=== PATIENT | female | born 1940 | race Two or more races ===

== ENCOUNTER 2023-12-05 09:18 | Emergency (ER) | payer MEDICARE, SELFPAY ==
--- NOTE | ~2023-12-05 | XR_ITS ---
EXAMINATION: RIGHT SHOULDER, BILATERAL KNEES AND RIGHT THUMB CLINICAL INFORMATION: Thumb pain and swelling. Shoulder pain and bilateral knee pain after fall weeks ago COMPARISON: None available. TECHNIQUE: 3 views right shoulder, 2 views each knee, 3 views right thumb FINDINGS: Shoulder: Degenerative changes are present at the AC joint. The glenohumeral joint is unremarkable. There is calcification present in the supraspinatus tendon. No acute fracture or dislocation is seen. Right knee: Moderate degenerative changes are seen with most marked changes in the patellofemoral joint and medial compartment with milder degenerative changes seen in the lateral compartment. No knee joint effusion is seen. No fractures or dislocations. Left knee: Moderate degenerative changes are seen with most marked changes in the patellofemoral joint and medial compartment with milder degenerative changes seen in the lateral compartment. No knee joint effusion is seen. No fractures or dislocations. Left thumb: No fractures or dislocations. Some mild degenerative changes are seen at the interphalangeal joint and MCP joint. There is some periarticular calcification present at the base of the first metacarpal laterally. XR/XR shoulder RT min 2V IMPRESSION: 1. No evidence of an acute osseous injury. 2. 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 3. 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 4. Degenerative changes in the right thumb.
--- NOTE | ~2023-12-05 | XR_ITS ---
EXAMINATION: RIGHT SHOULDER, BILATERAL KNEES AND RIGHT THUMB CLINICAL INFORMATION: Thumb pain and swelling. Shoulder pain and bilateral knee pain after fall weeks ago COMPARISON: None available. TECHNIQUE: 3 views right shoulder, 2 views each knee, 3 views right thumb FINDINGS: Shoulder: Degenerative changes are present at the AC joint. The glenohumeral joint is unremarkable. There is calcification present in the supraspinatus tendon. No acute fracture or dislocation is seen. Right knee: Moderate degenerative changes are seen with most marked changes in the patellofemoral joint and medial compartment with milder degenerative changes seen in the lateral compartment. No knee joint effusion is seen. No fractures or dislocations. Left knee: Moderate degenerative changes are seen with most marked changes in the patellofemoral joint and medial compartment with milder degenerative changes seen in the lateral compartment. No knee joint effusion is seen. No fractures or dislocations. Left thumb: No fractures or dislocations. Some mild degenerative changes are seen at the interphalangeal joint and MCP joint. There is some periarticular calcification present at the base of the first metacarpal laterally. XR/XR knee RT 2V IMPRESSION: 1. No evidence of an acute osseous injury. 2. 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 3. 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 4. Degenerative changes in the right thumb.
--- NOTE | ~2023-12-05 | XR_ITS ---
EXAMINATION: RIGHT SHOULDER, BILATERAL KNEES AND RIGHT THUMB CLINICAL INFORMATION: Thumb pain and swelling. Shoulder pain and bilateral knee pain after fall weeks ago COMPARISON: None available. TECHNIQUE: 3 views right shoulder, 2 views each knee, 3 views right thumb FINDINGS: Shoulder: Degenerative changes are present at the AC joint. The glenohumeral joint is unremarkable. There is calcification present in the supraspinatus tendon. No acute fracture or dislocation is seen. Right knee: Moderate degenerative changes are seen with most marked changes in the patellofemoral joint and medial compartment with milder degenerative changes seen in the lateral compartment. No knee joint effusion is seen. No fractures or dislocations. Left knee: Moderate degenerative changes are seen with most marked changes in the patellofemoral joint and medial compartment with milder degenerative changes seen in the lateral compartment. No knee joint effusion is seen. No fractures or dislocations. Left thumb: No fractures or dislocations. Some mild degenerative changes are seen at the interphalangeal joint and MCP joint. There is some periarticular calcification present at the base of the first metacarpal laterally. XR/XR finger RT min 2V IMPRESSION: 1. No evidence of an acute osseous injury. 2. 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 3. 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 4. Degenerative changes in the right thumb.
--- NOTE | ~2023-12-05 | XR_ITS ---
EXAMINATION: RIGHT SHOULDER, BILATERAL KNEES AND RIGHT THUMB CLINICAL INFORMATION: Thumb pain and swelling. Shoulder pain and bilateral knee pain after fall weeks ago COMPARISON: None available. TECHNIQUE: 3 views right shoulder, 2 views each knee, 3 views right thumb FINDINGS: Shoulder: Degenerative changes are present at the AC joint. The glenohumeral joint is unremarkable. There is calcification present in the supraspinatus tendon. No acute fracture or dislocation is seen. Right knee: Moderate degenerative changes are seen with most marked changes in the patellofemoral joint and medial compartment with milder degenerative changes seen in the lateral compartment. No knee joint effusion is seen. No fractures or dislocations. Left knee: Moderate degenerative changes are seen with most marked changes in the patellofemoral joint and medial compartment with milder degenerative changes seen in the lateral compartment. No knee joint effusion is seen. No fractures or dislocations. Left thumb: No fractures or dislocations. Some mild degenerative changes are seen at the interphalangeal joint and MCP joint. There is some periarticular calcification present at the base of the first metacarpal laterally. XR/XR knee LT 2V IMPRESSION: 1. No evidence of an acute osseous injury. 2. 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 3. 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 4. Degenerative changes in the right thumb.
[2023-12-05 09:25] VITALS: BP 149/63; PULSE 70; RESP 17; TEMP 36.6; O2SAT 98; BMI 35.7
--- NOTE | 2023-12-05 11:37 | PC.NURSE ---
Pt comes from home for a fall where she tripped and fell forward. No LOC, - head strike, - blood thinners. States pain in both knees and right shoulder. Pt also states pain to her right wrist that is unrelated to the fall. Daughter at bedside, djiboutian speaking only. Awaiting X-ray results at this time.
--- NOTE | 2023-12-05 12:01 | ED.GENADULT ---
HPI - General Adult General Chief complaint: General Medical Stated complaint: r hand r foot swelling in pain Time Seen by Provider: 12/05/23 11:33 Source: patient and family Mode of arrival: wheelchair Limitations: no limitations History of Present Illness ED Provider: mitzy [facility] narrative: Patient is an 83-year-old female presenting to the emergency department with family complaining primarily of right thumb pain, as well as bilateral knee pain and right shoulder pain. States that she tripped and fell a few days ago. She typically uses a walker but was not using her walker at the time. Denies head strike or loss of consciousness. She is not anticoagulated. MD complaint: right hand pain Onset (ago): day(s) Severity: moderate Quality: aching Pain Consistency: constant Associated symptoms: denies other symptoms Treatments prior to arrival: none Related Data Previous Rx's ?Medication ?Instructions ?Recorded diclofenac sodium 1 % topical gel 2 g topical QID #100 grams 12/05/23 Allergies Allergy/AdvReac Type Severity Reaction Status Date / Time No Known Allergies Allergy Verified 12/05/23 09:28 Review of Systems Review of Systems: As per HPI. Yes all other systems are reviewed and are negative Constitutional: Constitutional: Reports as per HPI PMF Social History Social History Smoked in Last 30 Days: No Use of substances other than those prescribed or required for medical reasons: No Advance Directives: No Advance Directives Information Provided: Yes Physical Exam ED Vital Signs: Vital Signs - 24 hr 12/05/23 09:25 Temperature 98 F Pulse Rate 70 Respiratory Rate 17 Blood Pressure 149/63 H Pulse Oximetry 98 Oxygen Delivery Method Room Air BMI result Body Mass Index 35.7 Vital signs have been reviewed and appear to be correct. Blood pressure elevated. Heart rate normal. Respiratory rate normal. Temperature normal. Oxygen saturation normal. Const General: cooperative, healthy appearing and no acute distress Orientation/consciousness: oriented to person, oriented to place, oriented to time and patient oriented x3 Limitations: no limitations HENMT Head: Yes normocephalic and Yes atraumatic Ears: external ears normal General nose exam: Normal external nose present Face and sinus: Yes face symmetric Mouth: oropharynx normal and moist mucous membranes Throat: Yes uvula midline Eyes Pupils: Equal, round and reactive pupils present Neck Neck: Yes normal visual inspection and Yes supple Resp Effort & Inspection: normal respiratory effort and able to speak in complete sentences Auscultation: clear to auscultation bilaterally Cardio Rate: regular rate Rhythm: regular rhythm Heart sounds: S1 normal heart sound present and S2 normal heart sound present GI Palpation (GI): Soft to palpation and nontender Auscultation: normoactive bowel sounds General: Yes no CVA tenderness Back/Spine/Pelvis Back: no CVA tenderness Skin General skin exam: elasticity normal and turgor normal Neuro General: oriented to person, oriented to place, oriented to time, patient oriented x3, moves all extremities, no focal motor deficits and CN's II-XI intact bilaterally Cranial nerves: Yes Equal, round and reactive pupils present Cognition (Neuro): normal cognition Extrem General: Yes full ROM, Yes no pedal edema and Yes no calf tenderness Right upper extremity: shoulder/upper arm Details: normal to inspection, tenderness Location: of the A-C joint and normal ROM; no ecchymosis and Extremity exam: right hand Details: normal capillary refill, neuromotor exam normal, neurosensory exam normal, normal ROM of fingers and ecchymosis Location: of the thumb Location: at the MCP joint Right lower extremity: knee Details: normal to inspection, tenderness Location: of the patella, normal ROM and knee ligament exam normal; no ecchymosis Left lower extremity: knee Details: normal to inspection, tenderness Location: of the patella, normal ROM and knee ligament exam normal; no ecchymosis Psych Mental Status: mental status grossly normal Affect: normal affect Thought process: Normal thought process present Medical Decision Making Medical Decision Making MDM Narrative: Patient is an 83-year-old female presenting to the emergency department with family complaining primarily of right thumb pain, as well as bilateral knee pain and right shoulder pain. On exam patient is awake, A+Ox3, VS WNL, afebrile, normal neurological exam without focal deficits, physical exam findings as above. Given reported symptoms and physical exam findings, initial differential includes contusion of right hand, knees, right shoulder strain, fracture. X-ray notable for no fractures or dislocations. My interpretation is in agreement with the radiologist's interpretation. Patient and family updated all results and all questions answered. Advised patient to use Tylenol as needed for pain as well as apply ice intermittently, will send prescription for diclofenac gel. Instructed patient to return with any new or worsening symptoms. Advised patient to follow-up with PCP when she returns to [place]. Patient family verbalized understanding of and agreement with plan. Differential Diagnosis Differential Diagnoses: The differential diagnosis associated with the presentation includes As per MDM. Independent Interpretation I performed an independent interpretation of an: Plain X-Ray Interpretation: No acute fractures to right shoulder, right hand, bilateral knees Radiology Impression Discussion of test interpretation with radiology: I have reviewed the radiologist's reading. Radiologist Impression: XR/XR shoulder RT min 2V IMPRESSION: 1. No evidence of an acute osseous injury. 2. 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 3. 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 4. Degenerative changes in the right thumb. External Record Review External record reviewed: Inpatient record, Office record and Outpatient record Prescription Management I considered prescription management with: Pain Medication Discharge Plan Discharge Clinical Impression: Contusion of hand, right Patient Disposition: Home, Self-Care Instructions: Fall Prevention for Older Adults (ED), Contusion in Adults (ED) Additional Instructions: You were evaluated in the emergency department for injuries after a fall. Your x-rays did not show evidence of any fractures or dislocation. We recommend 650mg of Tylenol every 6 hours as needed. We also recommend applying ice to the affected areas for 10-15 minutes at a time, using caution not to apply ice directly to skin. You are being prescribed diclofenac gel which you can use as prescribed topically to the affected areas. Please follow-up with your primary care provider. Return to the emergency department with any new or worsening symptoms. Prescriptions: New diclofenac sodium 1 % gel 2 g topical QID Qty: 100 0RF Rx Instructions: apply to single elbow, wrist or hand; for hand includes palm/fingers/back of hand Print Language: Korean
[2023-12-05 12:46] VITALS: BP 130/73; PULSE 72; RESP 18; TEMP 36.7; O2SAT 97
== END 2023-12-05 12:47 | disposition home or self-care (01) ==
PROVIDERS: Emergency Provider Emergency Medicine
DX: S60.221A Contusion of right hand, initial encounter (principal); W01.0XXA Fall on same level from slipping, tripping and stumbling without subsequent striking against object, initial encounter; Y93.9 Activity, unspecified; Y92.9 Unspecified place or not applicable; Y99.9 Unspecified external cause status
CPT/HCPCS: 73030; 73140; 73560; 99283; 99284